=== PATIENT | male | born 1965 | race Caucasian/White ===

== ENCOUNTER 2019-01-30 10:51 | Inpatient (IN) ==
[2019-01-30] MEDS ORDERED: INFLUENZA VIRUS VACCINE 0.5 ML SYRINGE IM ONE (15:00)
[2019-01-30] MEDS ORDERED: ACETAMINOPHEN 325 MG TABLET PO PRN (15:06)
[2019-01-30 16:35] LABS: Basophils % 0.2 % (0.0-0.8); Eosinophils % 0.3 % (0.00-10.9); Hematocrit 42.2 VOL% (42.0-52.0); Hemoglobin 14.3 GM/DL (14.0-18.0); Immature Granulocytes % 0.6 %; Immature Granulocytes Absolute 0.06 #; Lymphocytes # 1.4 10*3/uL (1.4-4.0); Lymphocytes % 12.7 % (21.2-54.2); Mean Corpuscular HGB Conc 33.9 GM/DL (32-36); Mean Corpuscular Volume 85.9 FL (87-102); Mean Platelet Volume 8.9 FL (9.6-12.0); Neutrophils % 76.2 % (38.7-73.9); Platelet Count 286 T/CUMM (130-400); Red Blood Count 4.91 MC/CUMM (3.8-5.5); Red Cell Distribution Width 11.9 % (9.3-17.3); White Blood Count 10.6 T/CUMM (4-12)
[2019-01-30 16:57] LABS: Albumin 3.2 G/DL (3.4-5.0); Bilirubin,Total 3.9 MG/DL (0.2-1.0); Calcium 9.3 MG/DL (8.5-10.1); Osmolality,Calculated 276.7 MOS/KG (273-304); Total Protein 7.1 G/DL (6.4-8.3)
[2019-01-30] MEDS: ONDANSETRON 4 MG/2 ML VIAL IV PRN ×2 (17:33→22:31)
[2019-01-30] MEDS: DEXAMETHASONE 4 MG/1 ML VIAL IV SCH (17:34)
[2019-01-30] MEDS: HYDROmorphone 2 MG/1 ML VIAL IV PRN ×2 (17:34→22:33)
[2019-01-30] MEDS: DEXTROSE 5% NACL 0.45% 1,000 ML IV SCH (17:35)
[2019-01-30 17:50] LABS: Amorphous Crystals,Urine Occasional /HPF (Few); Apearance,Urine Slightly Hazy (Clear); Bilirubin,Urine Negative (Negative); Blood, Urine Moderate mg/dL (Negative); Glucose,Urine (UA) Negative (Negative); Ketones,Urine Negative (Negative); Mucus,Urine Occasional /LPF (Occasional); Nitrite,Urine Negative (Negative); Protein,Urine Negative; RBC,Urine 89 /HPF (0-4); Squamous Epithelial Cell,Urine Occasional /HPF (0-10); Urine Color Amber (Yellow); Urine Specific Gravity 1.014 (1.001-1.035); WBC,Urine 1 /HPF (0-6)
[2019-01-30] MEDS: chlorproMAZINE INJ 12.5 MG in SODIUM CHLORIDE 0.9% 100 ML IV PRN (19:00)
[2019-01-31] MEDS: DEXAMETHASONE 4 MG/1 ML VIAL IV SCH ×4 (00:06→23:52)
[2019-01-31] MEDS: ONDANSETRON 4 MG/2 ML VIAL IV PRN ×4 (03:59→19:52)
[2019-01-31] MEDS: HYDROmorphone 2 MG/1 ML VIAL IV PRN ×4 (04:00→19:53)
[2019-01-31 04:51] LABS: Basophils % 0.1 % (0.0-0.8); Hematocrit 44.1 VOL% (42.0-52.0); Hemoglobin 14.8 GM/DL (14.0-18.0); Immature Granulocytes % 0.8 %; Immature Granulocytes Absolute 0.07 #; Lymphocytes # 0.6 10*3/uL (1.4-4.0); Lymphocytes % 6.1 % (21.2-54.2); Mean Corpuscular HGB Conc 33.6 GM/DL (32-36); Mean Corpuscular Volume 86.5 FL (87-102); Mean Platelet Volume 9.2 FL (9.6-12.0); Monocytes % 4.6 % (1.7-12.7); Neutrophils % 88.4 % (38.7-73.9); Platelet Count 279 T/CUMM (130-400); Red Cell Distribution Width 11.8 % (9.3-17.3); White Blood Count 9.3 T/CUMM (4-12)
[2019-01-31 05:11] LABS: Albumin 3.2 G/DL (3.4-5.0); Bilirubin,Total 4.4 MG/DL (0.2-1.0); Osmolality,Calculated 283.3 MOS/KG (273-304); Risk Ratio 4.76; Thyroid Stimulating Hormone 0.195 uIU/ml (0.358-3.74); Total Protein 6.8 G/DL (6.4-8.3); VLDL CHOLESTEROL 19.8 MG/DL
[2019-01-31] MEDS: DEXTROSE 5% NACL 0.45% 1,000 ML IV SCH ×2 (07:04→23:56)
[2019-01-31] MEDS: PANTOPRAZOLE 40 MG VIAL IV SCH (08:41)
[2019-01-31] MEDS ORDERED: LOPERAMIDE 2 MG CAPSULE PO PRN ×2 (08:45)
[2019-01-31] MEDS ORDERED: traMADol 50 MG TABLET PO PRN (08:45)
[2019-01-31] MEDS ORDERED: ALUMINUM/MAGNES/SIMETH MAX STR 30 ML UDCUP PO PRN (08:45)
[2019-01-31] MEDS ORDERED: MYLANTA/LIDO VISC 2:1 300 ML BOTTLE SWISH/SWAL PRN (08:45)
[2019-01-31] MEDS ORDERED: MYLANTA/LIDO VISC 2:1 300 ML BOTTLE SWISH/SPIT PRN (08:45)
[2019-01-31] MEDS ORDERED: MAGNESIUM HYDROXIDE SUSP 30 ML UDCUP PO PRN (08:45)
[2019-01-31] MEDS ORDERED: ALPRAZolam 0.25 MG TABLET PO PRN (08:45)
[2019-01-31] MEDS ORDERED: LACTULOSE 20 GM/30 ML UDCUP PO PRN (08:45)
[2019-01-31] MEDS ORDERED: PROMETHAZINE INJ 25 MG in SODIUM CHLORIDE 0.9% 50 ML IV PRN (08:45)
[2019-01-31] MEDS ORDERED: ACETAMINOPHEN 325 MG TABLET PO PRN (08:45)
[2019-01-31] MEDS ORDERED: guaiFENesin 200 MG/10 ML UDCUP PO PRN (08:45)
[2019-01-31] MEDS ORDERED: diphenhydrAMINE CAP 25 MG CAPSULE PO PRN (08:45)
[2019-01-31] MEDS ORDERED: BENZTROPINE 2 MG/2 ML AMP IV PRN (08:45)
[2019-01-31] MEDS ORDERED: chlorproMAZINE INJ 25 MG in SODIUM CHLORIDE 0.9% 100 ML IV PRN (08:45)
[2019-01-31] MEDS ORDERED: chlorproMAZINE INJ 50 MG in SODIUM CHLORIDE 0.9% 100 ML IV PRN (08:45)
[2019-01-31] MEDS ORDERED: PANTOPRAZOLE 40 MG TABLET PO SCH (09:00)
[2019-01-31] MEDS ORDERED: LORazepam 2 MG/1 ML VIAL IV ONE (09:25)
[2019-01-31 10:35] LABS: Hepatitis B Surface Ag Quant < 0.10 Index; Hepatitis B Surface Ag Result Negative (Negative); Hepatitis C Virus Ab Quant 0.05 Index; Hepatitis C Virus Ab Result Negative (Negative)
[2019-02-01] MEDS: chlorproMAZINE INJ 12.5 MG in SODIUM CHLORIDE 0.9% 100 ML IV PRN (00:19)
[2019-02-01] MEDS: HYDROmorphone 2 MG/1 ML VIAL IV PRN ×4 (00:23→21:01)
[2019-02-01 03:09] LABS: Basophils % 0.2 % (0.0-0.8); Eosinophils % 0.1 % (0.00-10.9); Hematocrit 43.5 VOL% (42.0-52.0); Hemoglobin 14.5 GM/DL (14.0-18.0); Immature Granulocytes % 0.9 %; Immature Granulocytes Absolute 0.12 #; Lymphocytes # 0.6 10*3/uL (1.4-4.0); Lymphocytes % 4.4 % (21.2-54.2); Mean Corpuscular HGB Conc 33.3 GM/DL (32-36); Mean Platelet Volume 9.2 FL (9.6-12.0); Monocytes % 5.9 % (1.7-12.7); Neutrophils % 88.5 % (38.7-73.9); Platelet Count 262 T/CUMM (130-400); Red Blood Count 5.06 MC/CUMM (3.8-5.5); Red Cell Distribution Width 11.9 % (9.3-17.3); White Blood Count 13.3 T/CUMM (4-12)
[2019-02-01 03:31] LABS: Bilirubin,Total 4.8 MG/DL (0.2-1.0); Osmolality,Calculated 276.8 MOS/KG (273-304); Total Protein 6.9 G/DL (6.4-8.3)
[2019-02-01 03:52] LABS: Lymphocytes 5 % (20-55); Platelet Estimate Adequate; Segmented Neutrophils 90 % (50-85); Total Cells Counted 100
[2019-02-01 03:53] LABS: Polychromasia Slight
[2019-02-01] MEDS: ONDANSETRON 4 MG/2 ML VIAL IV PRN ×2 (06:14→18:29)
[2019-02-01] MEDS ORDERED: GLYCOPYRROLATE 0.4 MG/2 ML VIAL IM ONE (07:00)
[2019-02-01] MEDS ORDERED: PROMETHAZINE 25 MG/1 ML VIAL IM ONE (07:00)
[2019-02-01] MEDS ORDERED: MEPERIDINE 50 MG/1 ML VIAL IM ONE (07:00)
[2019-02-01] MEDS ORDERED: MIDAZOLAM 2 MG/2 ML VIAL ONE (07:12)
[2019-02-01] MEDS ORDERED: LIDOCAINE 2% 20 ML VIAL RESP TX ONE (07:30)
[2019-02-01] MEDS ORDERED: LIDOCAINE 1% 20 ML VIAL MISC INJ ONE (07:30)
[2019-02-01] MEDS ORDERED: LIDOCAINE 2% VISCOUS 100 ML BOTTLE SWISH/SPIT ONE (07:30)
[2019-02-01] MEDS ORDERED: MIDAZOLAM 2 MG/2 ML VIAL IV ONE (07:30)
[2019-02-01] MEDS: DEXAMETHASONE 4 MG/1 ML VIAL IV SCH ×2 (08:54→15:49)
[2019-02-01] MEDS: PANTOPRAZOLE 40 MG VIAL IV SCH (08:57)
[2019-02-01] MEDS: DEXTROSE 5% NACL 0.45% 1,000 ML IV SCH (15:51)
[2019-02-01] MEDS: TEMAZEPAM 7.5 MG CAPSULE PO PRN (21:01)
[2019-02-01] MEDS: levETIRAcetam 500 MG TABLET PO SCH (21:01)
[2019-02-02] MEDS: DEXAMETHASONE 4 MG/1 ML VIAL IV SCH ×3 (00:57→17:08)
[2019-02-02] MEDS: HYDROmorphone 2 MG/1 ML VIAL IV PRN ×3 (04:05→20:17)
[2019-02-02 05:07] LABS: Basophils % 0.2 % (0.0-0.8); Eosinophils % 0.1 % (0.00-10.9); Hemoglobin 15.3 GM/DL (14.0-18.0); Immature Granulocytes % 0.9 %; Immature Granulocytes Absolute 0.15 #; Lymphocytes # 0.6 10*3/uL (1.4-4.0); Lymphocytes % 3.6 % (21.2-54.2); Mean Corpuscular Volume 86.4 FL (87-102); Mean Platelet Volume 9.2 FL (9.6-12.0); Monocytes % 4.5 % (1.7-12.7); Neutrophils % 90.7 % (38.7-73.9); Platelet Count 265 T/CUMM (130-400); Red Blood Count 5.21 MC/CUMM (3.8-5.5); Red Cell Distribution Width 11.9 % (9.3-17.3); White Blood Count 16.8 T/CUMM (4-12)
[2019-02-02] MEDS: DEXTROSE 5% NACL 0.45% 1,000 ML IV SCH ×3 (05:15→22:00)
[2019-02-02 05:20] LABS: Albumin 3.1 G/DL (3.4-5.0); Bilirubin,Total 5.2 MG/DL (0.2-1.0); Calcium 9.2 MG/DL (8.5-10.1); Osmolality,Calculated 281.4 MOS/KG (273-304); Total Protein 7.2 G/DL (6.4-8.3)
[2019-02-02 05:35] LABS: Hypochromasia 1+; Lymphocytes 5 % (20-55); Platelet Estimate Adequate; Segmented Neutrophils 94 % (50-85); Total Cells Counted 100
[2019-02-02] MEDS: chlorproMAZINE INJ 12.5 MG in SODIUM CHLORIDE 0.9% 100 ML IV PRN (08:49)
[2019-02-02] MEDS: KETOROLAC 15 MG/1 ML VIAL IV SCH ×2 (08:56→17:07)
[2019-02-02] MEDS: fentaNYL 25 MCG/HR PATCH TRANSDERM SCH (09:05)
[2019-02-02] MEDS: levETIRAcetam 500 MG TABLET PO SCH ×2 (09:06→20:52)
[2019-02-02] MEDS: PANTOPRAZOLE 40 MG VIAL IV SCH (09:07)
[2019-02-02] MEDS: LORazepam 2 MG/1 ML VIAL IV PRN (13:03)
[2019-02-02] MEDS: ONDANSETRON 4 MG/2 ML VIAL IV PRN (20:15)
[2019-02-02] MEDS: TEMAZEPAM 7.5 MG CAPSULE PO PRN (20:52)
[2019-02-03] MEDS: DEXAMETHASONE 4 MG/1 ML VIAL IV SCH ×3 (00:25→16:53)
[2019-02-03] MEDS: KETOROLAC 15 MG/1 ML VIAL IV SCH ×2 (00:27→10:07)
[2019-02-03] MEDS: ONDANSETRON 4 MG/2 ML VIAL IV PRN ×3 (03:23→19:39)
[2019-02-03] MEDS: HYDROmorphone 2 MG/1 ML VIAL IV PRN ×3 (03:24→16:56)
[2019-02-03 04:49] LABS: Basophils % 0.1 % (0.0-0.8); Eosinophils % 0.1 % (0.00-10.9); Hematocrit 44.5 VOL% (42.0-52.0); Hemoglobin 14.9 GM/DL (14.0-18.0); Immature Granulocytes % 0.8 %; Immature Granulocytes Absolute 0.09 #; Lymphocytes # 0.5 10*3/uL (1.4-4.0); Lymphocytes % 4.7 % (21.2-54.2); Mean Corpuscular HGB Conc 33.5 GM/DL (32-36); Mean Corpuscular Volume 86.4 FL (87-102); Monocytes % 6.3 % (1.7-12.7); Platelet Count 231 T/CUMM (130-400); Red Blood Count 5.15 MC/CUMM (3.8-5.5); White Blood Count 11.4 T/CUMM (4-12)
[2019-02-03 05:06] LABS: Albumin 2.9 G/DL (3.4-5.0); Bilirubin,Direct 2.61 MG/DL (0.0-0.20); Bilirubin,Indirect 2.4 MG/DL (0.0-1.0); Calcium 9.3 MG/DL (8.5-10.1); Osmolality,Calculated 282.4 MOS/KG (273-304); Total Protein 6.8 G/DL (6.4-8.3)
[2019-02-03 05:20] LABS: Lymphocytes 4 % (20-55); Segmented Neutrophils 89 % (50-85)
[2019-02-03 05:21] LABS: Platelet Estimate Normal
[2019-02-03 05:22] LABS: Total Cells Counted 100
[2019-02-03] MEDS: PANTOPRAZOLE 40 MG VIAL IV SCH (10:07)
[2019-02-03] MEDS: levETIRAcetam 500 MG TABLET PO SCH ×2 (10:08→21:45)
[2019-02-03] MEDS: LORazepam 2 MG/1 ML VIAL IV PRN (13:12)
[2019-02-03] MEDS: DEXTROSE 5% NACL 0.45% 1,000 ML IV SCH ×2 (14:52→16:59)
[2019-02-03] MEDS: MORPHINE 4 MG/1 ML VIAL IV PRN (21:45)
[2019-02-04] MEDS: DEXAMETHASONE 4 MG/1 ML VIAL IV SCH ×2 (00:04→09:11)
[2019-02-04] MEDS: ONDANSETRON 4 MG/2 ML VIAL IV PRN ×4 (00:39→23:24)
[2019-02-04] MEDS: MORPHINE 4 MG/1 ML VIAL IV PRN ×3 (00:48→20:52)
[2019-02-04 05:25] LABS: Basophils % 0.1 % (0.0-0.8); Hematocrit 47.1 VOL% (42.0-52.0); Hemoglobin 15.9 GM/DL (14.0-18.0); Immature Granulocytes % 0.6 %; Lymphocytes # 0.9 10*3/uL (1.4-4.0); Lymphocytes % 5.2 % (21.2-54.2); Mean Corpuscular HGB Conc 33.8 GM/DL (32-36); Mean Corpuscular Volume 85.8 FL (87-102); Mean Platelet Volume 9.4 FL (9.6-12.0); Neutrophils % 88.1 % (38.7-73.9); Platelet Count 282 T/CUMM (130-400); Red Blood Count 5.49 MC/CUMM (3.8-5.5); White Blood Count 16.8 T/CUMM (4-12)
[2019-02-04 05:48] LABS: Bilirubin,Direct 2.14 MG/DL (0.0-0.20); Bilirubin,Indirect 2.2 MG/DL (0.0-1.0); Bilirubin,Total 4.3 MG/DL (0.2-1.0); Calcium 8.9 MG/DL (8.5-10.1); Osmolality,Calculated 281.4 MOS/KG (273-304); Total Protein 7.2 G/DL (6.4-8.3)
[2019-02-04] MEDS: DEXTROSE 5% NACL 0.45% 1,000 ML IV SCH ×2 (06:13→15:30)
[2019-02-04] MEDS: KETOROLAC 15 MG/1 ML VIAL IV PRN (06:56)
[2019-02-04] MEDS: PANTOPRAZOLE 40 MG VIAL IV SCH (09:12)
[2019-02-04] MEDS: chlorproMAZINE INJ 12.5 MG in SODIUM CHLORIDE 0.9% 100 ML IV PRN (09:15)
[2019-02-04] MEDS: HYDROmorphone 2 MG/1 ML VIAL IV PRN ×2 (09:18→17:34)
[2019-02-04] MEDS: LORazepam 2 MG/1 ML VIAL IV PRN (09:19)
[2019-02-04] MEDS: levETIRAcetam 500 MG TABLET PO SCH ×2 (11:57→20:51)
[2019-02-04] MEDS: PANTOPRAZOLE 40 MG TABLET PO SCH (11:57)
[2019-02-04] MEDS: DEXAMETHASONE 4 MG TABLET PO SCH ×3 (11:57→20:51)
[2019-02-04] MEDS: FAT EMULSION 20% 250 ML IV SCH (14:33)
[2019-02-04] MEDS: MULTIVITAMIN INJ 10 ML in AMINO ACIDS/DEXT/LYTES 4.25-5% 2,000 ML IV SCH (17:43)
[2019-02-04] MEDS: chlorproMAZINE 25 MG TABLET PO PRN (20:51)
[2019-02-04] MEDS: chlorproMAZINE INJ 25 MG in SODIUM CHLORIDE 0.9% 100 ML IV SCH (21:02)
[2019-02-05] MEDS: MORPHINE 4 MG/1 ML VIAL IV PRN ×4 (00:06→20:03)
[2019-02-05] MEDS: ONDANSETRON 4 MG/2 ML VIAL IV PRN ×4 (04:16→20:01)
[2019-02-05 04:50] LABS: Basophils % 0.1 % (0.0-0.8); Hematocrit 44.4 VOL% (42.0-52.0); Hemoglobin 14.7 GM/DL (14.0-18.0); Immature Granulocytes % 0.7 %; Lymphocytes # 0.3 10*3/uL (1.4-4.0); Lymphocytes % 2.3 % (21.2-54.2); Mean Corpuscular HGB Conc 33.1 GM/DL (32-36); Mean Corpuscular Volume 87.2 FL (87-102); Mean Platelet Volume 9.6 FL (9.6-12.0); Monocytes % 3.8 % (1.7-12.7); Neutrophils % 93.1 % (38.7-73.9); Platelet Count 245 T/CUMM (130-400); Red Blood Count 5.09 MC/CUMM (3.8-5.5); Red Cell Distribution Width 12.1 % (9.3-17.3); White Blood Count 14.1 T/CUMM (4-12)
[2019-02-05 05:18] LABS: Lymphocytes 2 % (20-55); Microcytosis 1+; Segmented Neutrophils 96 % (50-85); Total Cells Counted 100
[2019-02-05 05:19] LABS: Polychromasia Slight
[2019-02-05 05:20] LABS: Platelet Estimate Normal
[2019-02-05 05:24] LABS: Albumin 2.7 G/DL (3.4-5.0); Bilirubin,Direct 2.15 MG/DL (0.0-0.20); Bilirubin,Indirect 2.1 MG/DL (0.0-1.0); Bilirubin,Total 4.2 MG/DL (0.2-1.0); Total Protein 6.6 G/DL (6.4-8.3)
[2019-02-05 05:27] LABS: Calcium 8.7 MG/DL (8.5-10.1); Osmolality,Calculated 287.1 MOS/KG (273-304); Prealbumin 31.7 MG/DL (20-40)
[2019-02-05] MEDS: DEXTROSE 5% NACL 0.45% 1,000 ML IV SCH ×2 (06:45→20:02)
[2019-02-05] MEDS: HYDROmorphone 2 MG/1 ML VIAL IV PRN ×2 (08:07→12:51)
[2019-02-05] MEDS: KETOROLAC 15 MG/1 ML VIAL IV PRN (08:07)
[2019-02-05] MEDS: ENOXAPARIN 40 MG/0.4 ML SYRINGE SUBCUT SCH (10:25)
[2019-02-05] MEDS: DEXAMETHASONE 4 MG TABLET PO SCH ×3 (10:26→20:08)
[2019-02-05] MEDS: PANTOPRAZOLE 40 MG TABLET PO SCH (10:26)
[2019-02-05] MEDS: levETIRAcetam 500 MG TABLET PO SCH ×2 (10:26→20:08)
[2019-02-05] MEDS: fentaNYL 25 MCG/HR PATCH TRANSDERM SCH (10:26)
[2019-02-05] MEDS: MULTIVITAMIN INJ 10 ML in AMINO ACIDS/DEXT/LYTES 4.25-5% 2,000 ML IV SCH (10:27)
[2019-02-05] MEDS: FAT EMULSION 20% 250 ML IV SCH (15:26)
[2019-02-05] MEDS: LORazepam 2 MG/1 ML VIAL IV PRN (20:05)
[2019-02-05] MEDS: chlorproMAZINE INJ 25 MG in SODIUM CHLORIDE 0.9% 100 ML IV SCH (21:12)
[2019-02-06] MEDS: ONDANSETRON 4 MG/2 ML VIAL IV PRN ×3 (02:03→19:19)
[2019-02-06] MEDS: MORPHINE 4 MG/1 ML VIAL IV PRN ×2 (02:05→06:37)
[2019-02-06 04:58] LABS: Basophils % 0.2 % (0.0-0.8); Eosinophils % 0.1 % (0.00-10.9); Hematocrit 43.3 VOL% (42.0-52.0); Hemoglobin 14.1 GM/DL (14.0-18.0); Immature Granulocytes % 0.7 %; Immature Granulocytes Absolute 0.09 #; Lymphocytes # 0.5 10*3/uL (1.4-4.0); Lymphocytes % 4.2 % (21.2-54.2); Mean Corpuscular HGB Conc 32.6 GM/DL (32-36); Mean Corpuscular Volume 88.4 FL (87-102); Mean Platelet Volume 9.5 FL (9.6-12.0); Monocytes % 5.8 % (1.7-12.7); Platelet Count 200 T/CUMM (130-400); Red Cell Distribution Width 12.3 % (9.3-17.3); White Blood Count 12.1 T/CUMM (4-12)
[2019-02-06] MEDS: MULTIVITAMIN INJ 10 ML in AMINO ACIDS/DEXT/LYTES 4.25-5% 2,000 ML IV SCH (05:11)
[2019-02-06 05:32] LABS: Albumin 2.5 G/DL (3.4-5.0); Bilirubin,Direct 2.35 MG/DL (0.0-0.20); Bilirubin,Indirect 1.7 MG/DL (0.0-1.0); Total Protein 6.2 G/DL (6.4-8.3)
[2019-02-06 05:58] LABS: Anisocytosis Slight; Band Neutrophils 7 % (0-10); Lymphocytes 4 % (20-55); Platelet Estimate Normal; Segmented Neutrophils 84 % (50-85); Total Cells Counted 100
[2019-02-06] MEDS: DEXTROSE 5% NACL 0.45% 1,000 ML IV SCH (08:44)
[2019-02-06] MEDS: levETIRAcetam 500 MG TABLET PO SCH ×2 (08:53→21:49)
[2019-02-06] MEDS: HYDROmorphone 2 MG/1 ML VIAL IV PRN ×4 (08:53→22:35)
[2019-02-06] MEDS: chlorproMAZINE 25 MG TABLET PO PRN (08:53)
[2019-02-06] MEDS: DEXAMETHASONE 4 MG TABLET PO SCH ×3 (08:53→21:49)
[2019-02-06] MEDS: ENOXAPARIN 40 MG/0.4 ML SYRINGE SUBCUT SCH (08:53)
[2019-02-06] MEDS: PANTOPRAZOLE 40 MG TABLET PO SCH (08:54)
[2019-02-06] MEDS: FAT EMULSION 20% 250 ML IV SCH (15:23)
[2019-02-06] MEDS: LORazepam 2 MG/1 ML VIAL IV PRN (21:49)
[2019-02-06] MEDS: chlorproMAZINE INJ 25 MG in SODIUM CHLORIDE 0.9% 100 ML IV SCH (23:37)
[2019-02-07] MEDS: MULTIVITAMIN INJ 10 ML in AMINO ACIDS/DEXT/LYTES 4.25-5% 2,000 ML IV SCH (00:14)
[2019-02-07] MEDS: HYDROmorphone 2 MG/1 ML VIAL IV PRN ×2 (01:59→07:32)
[2019-02-07] MEDS ORDERED: DEXAMETHASONE 4 MG/1 ML VIAL IV ONE (04:16)
[2019-02-07 05:36] LABS: Basophils % 0.1 % (0.0-0.8); Hematocrit 42.9 VOL% (42.0-52.0); Hemoglobin 14.1 GM/DL (14.0-18.0); Immature Granulocytes % 0.7 %; Lymphocytes # 0.4 10*3/uL (1.4-4.0); Lymphocytes % 2.7 % (21.2-54.2); Mean Corpuscular HGB Conc 32.9 GM/DL (32-36); Mean Corpuscular Volume 88.3 FL (87-102); Mean Platelet Volume 9.7 FL (9.6-12.0); Monocytes % 6.8 % (1.7-12.7); Neutrophils % 89.7 % (38.7-73.9); Platelet Count 195 T/CUMM (130-400); Red Blood Count 4.86 MC/CUMM (3.8-5.5); Red Cell Distribution Width 12.2 % (9.3-17.3); White Blood Count 13.4 T/CUMM (4-12)
[2019-02-07 05:56] LABS: Band Neutrophils 1 % (0-10); Hypochromasia 1+; Lymphocytes 3 % (20-55); Platelet Estimate Adequate; Segmented Neutrophils 88 % (50-85); Total Cells Counted 100
[2019-02-07 05:59] LABS: Albumin 2.5 G/DL (3.4-5.0); Bilirubin,Direct 3.22 MG/DL (0.0-0.20); Bilirubin,Indirect 2.1 MG/DL (0.0-1.0); Bilirubin,Total 5.3 MG/DL (0.2-1.0); Calcium 8.8 MG/DL (8.5-10.1); Osmolality,Calculated 282.5 MOS/KG (273-304); Total Protein 5.7 G/DL (6.4-8.3)
[2019-02-07] MEDS: PANTOPRAZOLE 40 MG TABLET PO SCH (08:47)
[2019-02-07] MEDS: levETIRAcetam 500 MG TABLET PO SCH (08:47)
[2019-02-07] MEDS: DEXAMETHASONE 4 MG TABLET PO SCH (08:47)
[2019-02-07] MEDS ORDERED: NALOXONE 0.4 MG/ML VIAL IV PRN (08:47)
[2019-02-07] MEDS: ENOXAPARIN 40 MG/0.4 ML SYRINGE SUBCUT SCH (09:26)
[2019-02-07] MEDS: HYDROmorphone PCA 30 MG/30 ML SYRINGE IV SCH (10:05)
[2019-02-07] MEDS: SODIUM CHLORIDE 0.9% 1,000 ML IV SCH (10:09)
[2019-02-07] MEDS: LORazepam 2 MG/1 ML VIAL IV PRN ×2 (16:10→23:03)
[2019-02-07] MEDS: chlorproMAZINE INJ 25 MG in SODIUM CHLORIDE 0.9% 100 ML IV SCH (22:47)
[2019-02-08] MEDS: LORazepam 2 MG/1 ML VIAL IV PRN ×4 (01:38→21:25)
[2019-02-08] MEDS: SODIUM CHLORIDE 0.9% 1,000 ML IV SCH (21:28)
[2019-02-08] MEDS: chlorproMAZINE INJ 25 MG in SODIUM CHLORIDE 0.9% 100 ML IV SCH (23:35)
[2019-02-09] MEDS: LORazepam 2 MG/1 ML VIAL IV PRN ×3 (02:42→07:27)
[2019-02-09] MEDS: HYDROmorphone 2 MG/1 ML VIAL IV PRN (07:26)
[2019-02-09] MEDS: HYDROmorphone PCA 30 MG/30 ML SYRINGE IV SCH ×2 (09:07)
[2019-02-09] MEDS: SODIUM CHLORIDE 0.9% 1,000 ML IV SCH (09:08)
[2019-02-09 11:19] VITALS: BP 139/87
[2019-02-09] MEDS: chlorproMAZINE INJ 25 MG in SODIUM CHLORIDE 0.9% 100 ML IV SCH (21:14)
[2019-02-10] MEDS: LORazepam 2 MG/1 ML VIAL IV PRN (01:30)
[2019-02-10] MEDS: SODIUM CHLORIDE 0.9% 1,000 ML IV SCH (04:09)
== END 2019-02-10 19:00 | disposition expired | DRG 166 ==
LOC: SUPCPDRO 13:56 → SUATTDRO 13:56 → N.4E 13:56
PROVIDERS: ADMIT Internal Medicine; ATTEND Hospitalist
PROC: BRONCHB (2019-02-01 07:35)